=== PATIENT | female | born 1955 | race Caucasian/White ===

== ENCOUNTER → 2017-01-06 | Outpatient (CLI) | payer BC ==
--- NOTE | 2017-01-06 19:39 | KCIC ---
Bilateral digital screening mammograms: Reason for examination: Routine screening. Comparison is made to previous studies dated 12/30/2015 and 12/06/2014. The skin and nipples show no abnormalities. No abnormal axillary lymph nodes are seen. The breast parenchyma is heterogeneously dense. (Breast density: Category C.) There are no dominant masses, suspicious calcifications or architectural distortion. Impression: No evidence of malignancy. Recommend routine screening. Your patient's mammogram demonstrates that she has dense breast tissue (breast density category C or D), which could hide abnormalities, and if she has other risk factors for breast cancer that have been identified, she might benefit from supplemental screening tests that may be suggested by you as her ordering physician. Dense breast tissue, in and of itself, is a relatively common condition. Therefore, this information is not provided to cause undue concern, but rather to raise your awareness and to promote discussion with your patient regarding the presence of other risk factors, in addition to dense breast tissue. Your patient's mammography results will be sent to her. BI-RAD Category 1: Negative. "Our facility is accredited by the [employer] Mammography Program." This patient's information has been entered into a reminder system for the patient to be notified with the results of her examination and a target date for the next mammogram. Electronically signed by: Ronit Rosario MD (01/06/2017 7:35 PM) [id number]
== END ==
LOC: KCIC MAMMO 15:19
PROVIDERS: ATTEND Internal Medicine
DX: Z12.31 Encounter for screening mammogram for malignant neoplasm of breast (principal)
CPT/HCPCS: G0202; 77067

== ENCOUNTER → 2017-02-24 | Outpatient (CLI) | payer BC ==
[~2017-02-24] MED LIST: ATOR10TA60 PO; GADOBUTROL 7.5 MMOL/7.5 ML VIAL IV ONE; LEVO25TA55 PO
--- NOTE | 2017-02-24 13:51 | KCIC ---
MRI Brain with and without contrast History: Sudden right sensorineural hearing loss starting 2 months ago Technique: Multiplanar, multi sequential pre and postcontrast MR imaging was performed of the brain to include dedicated images of the internal auditory canals. Contrast: 5 cc Gadavist Comparison: None Findings: There is no evidence of recent infarct or cytotoxic edema. The ventricles, sulci, and cisterns are within normal limits in size and configuration. There is no significant midline shift, intraaxial mass effect, or focal abnormal extra-axial fluid collection. There are multiple scattered small foci of T2 and FLAIR hyperintense signal abnormality of the supratentorial white matter most numerous of the frontal lobes, largest focus of the right frontal deep white matter. Foci are not associated with enhancement. There is no nodular parenchymal or leptomeningeal enhancement. There is a small right cerebellar developmental venous anomaly. There is also small right frontal developmental venous anomaly. There is preservation of the major intracranial flow-voids at the skull base. The cerebellar tonsils are normal in location. There is no significant abnormality of the pineal gland or pituitary gland. There is what may represent a complex mucous retention cyst of the inferior left maxillary sinus up to 1.3 cm. There has been lens surgery bilaterally. There is moderate fluid and thickening of the right mastoid air cells, left mastoid air cells aerated. There is preserved marrow signal of the clivus. Impression: 1. There is no enhancing mass of the internal auditory canals or cerebellopontine angles. 2. There is moderate fluid and thickening of the right mastoid air cells. 3. There are multiple scattered small foci of nonenhancing T2 and FLAIR hyperintense signal abnormality of supratentorial white matter greatest of the frontal lobes. Findings could be due to chronic microvascular ischemic disease. White matter changes can be seen with patients with migraine headaches if corresponding history. Pattern is not particularly suggestive of an inflammatory demyelinating disease. Electronically signed by: Eder Harris MD (02/24/2017 1:48 PM) [id number]
== END | disposition home or self-care (01) ==
LOC: KCIC MRI 12:14
PROVIDERS: ATTEND Otolaryngology Otology & Neurotology
DX: H91.91 Unspecified hearing loss, right ear (principal)
CPT/HCPCS: 70553; A9585

== ENCOUNTER → 2018-01-12 | Outpatient (CLI) | payer BC | END | disposition home or self-care (01) | LOC: KCIC MAMMO 12:52 | DX: Z12.31 Encounter for screening mammogram for malignant neoplasm of breast (principal) | CPT/HCPCS: 77067 ==

== ENCOUNTER → 2018-01-25 | Outpatient (CLI) | payer BC ==
[~2018-01-25] MED LIST changes: -GADOBUTROL 7.5 MMOL/7.5 ML VIAL IV ONE
--- NOTE | 2018-01-25 15:13 | KCIC ---
Left breast diagnostic digital mammograms: Reason for examination: Nodular asymmetries on screening mammogram. Comparison is made to previous study dated 01/12/2018. There continues to be some nodularity at the 12:00 B and approximately the 3:00 B positions of the left breast. These are fairly well-circumscribed and may represent cysts. Further evaluation with ultrasound will follow. IMPRESSION: Small nodular densities persist at approximately the 12:00 B and 3:00 B positions. Ultrasound to follow. BI-RADS Category 0: Incomplete. Needs additional imaging evaluation. Left breast ultrasound: Left breast ultrasound was performed in the areas of mammographic concern and the left axilla. In the 12:00 position 4 cm from the nipple, there is a small focus of some minimal fibrocystic change measuring 3 mm in greatest dimension position within some dense fibroglandular tissue. In the 3:00 position 4 cm from the nipple, there is a 5.2 mm hypoechoic circumscribed lesion consistent with a probable fibroadenoma. No other cystic or solid lesions are seen. There is some ductal ectasia. No abnormal appearing lymph nodes are seen in the axilla. IMPRESSION: Minimal fibrocystic changes at the 12:00 position. Small nodule probably representing a fibroadenoma at the 3:00 position measuring 5.2 mm in size. Recommend 6 month sonographic follow-up. BI-RADS Category 3: Probably Benign. "Our facility is accredited by the [employer] Mammography Program." This patient's information has been entered into a reminder system for the patient to be notified with the results of her examination and a target date for the next mammogram. Electronically signed by: Ronit Rosaroi MD (01/25/2018 3:09 PM) [id number]
== END | disposition home or self-care (01) ==
LOC: KCIC MAMMO 12:42
PROVIDERS: ATTEND Internal Medicine
DX: R92.8 Other abnormal and inconclusive findings on diagnostic imaging of breast (principal)
CPT/HCPCS: 76641; 77065

== ENCOUNTER → 2018-04-06 | Outpatient (CLI) | payer BC ==
--- NOTE | 2018-04-06 14:05 | KCIC ---
EXAM: Lumbar spine MRI without contrast. HISTORY: Sciatica. TECHNIQUE: Multiplanar, multisequence magnetic resonance imaging of the lumbar spine was performed without contrast. COMPARISON: None. FINDINGS: There is grade 1 anterolisthesis of L4 on L5, measuring 3 mm. There is degenerative endplate remodeling with disc space narrowing, osteophytosis and Schmorl's node formation at L5-S1. There are few small incidental osseous hemangiomas. No suspicious osseous lesion is seen. The conus terminates at L1. At L1-L2, there is no stenosis. At L2-L3, there is a disc bulge and endplate remodeling. There is mild bilateral facet arthropathy. There is no stenosis. At L3-L4, there is a disc bulge and endplate remodeling. There is mild bilateral facet arthropathy. There is no stenosis. At L4-L5, there is a right foraminal to extra foraminal disc protrusion superimposed on a disc bulge and endplate remodeling. There is mild right and moderate left facet arthropathy. There is mild right foraminal stenosis with abutment of the exiting right greater than left L4 nerve roots. At L5-S1, there are bilateral foraminal to extraforaminal disc osteophyte complexes superimposed on a disc bulge and endplate osteophytosis. There is mild bilateral facet arthropathy. There is mild to moderate right and moderate left foraminal stenosis with abutment of the exiting L5 nerve roots. IMPRESSION: 1. Multilevel degenerative change within the lumbar spine, described in detail above. This results in stenosis at the aforementioned levels. 2. Mild grade 1 anterolisthesis of L4 on L5. 3. No acute finding. Electronically signed by: Breanna Brandt MD (04/06/2018 2:02 PM) [place] [id number]
== END | disposition home or self-care (01) ==
LOC: KCIC MRI 12:49
PROVIDERS: ATTEND Chiropractor
DX: M47.896 Other spondylosis, lumbar region (principal); M85.88 Other specified disorders of bone density and structure, other site; M48.061 Spinal stenosis, lumbar region without neurogenic claudication
CPT/HCPCS: 72148

== ENCOUNTER → 2018-07-29 | Outpatient (CLI) | payer BC ==
--- NOTE | 2018-07-29 13:28 | KCIC ---
Bone mineral density exam History: Postmenopausal, osteoporosis, takes thyroid medication and calcium supplement, hysterectomy Comparison: 05/26/2008 Findings: Bone mineral density examination utilizing DEXA was performed. Left hip bone mineral density of 0.807 g/cm2 corresponds with a T score -1.1, Z score 0.1. Compared with the previous exam, there has been 1.2% increase. The bone mineral density of the lumbar spine was 0.798 g/cm2 which corresponds with a T-score of -2.3, Z score -0.5. Compared with the previous exam, there has been 8.1% increase. By World Congress on Osteoporosis criteria, a T score of 0 to-1 SD is considered to be within normal limits. A T score of -1 to -2.5 SD is considered osteopenia. A T score less than -2.5 SD is considered osteoporosis Impression: 1. There is osteopenia of the left hip and the lumbar spine. Electronically signed by: Eder Harris MD (07/29/2018 1:24 PM) [email or web address]
--- NOTE | 2018-07-29 17:51 | KCIC ---
Left breast ultrasound: Reason for examination: Follow-up nodules. Comparison is made to previous study dated 01/25/2018. Ultrasound examination of the left breast was performed with attention to the areas of previous mammographic and sonographic concern and the left axilla. In the 3:00 position 4 cm from the nipple, there continues to be a hypoechoic circumscribed lesion measuring 5.3 mm in greatest dimension which lies in parallel orientation and likely represents a small fibroadenoma and appears to be stable. In the 12:00 position 4 cm from the nipple, there continues to be a small fibrocystic type lesion measuring 3 mm in greatest dimension which shows no significant change. No abnormal appearing lymph nodes are seen in the axilla. IMPRESSION: No change in the small lesions at the 3:00 and 12:00 positions. Recommend reevaluation in 6 months to be performed at the time of bilateral mammograms to verify stability of these lesions. BI-RADS Category 3: Probably Benign. "Our facility is accredited by the [employer] Mammography Program." This patient's information has been entered into a reminder system for the patient to be notified with the results of her examination and a target date for the next mammogram. Electronically signed by: Ronit Rosario MD (07/29/2018 5:46 PM) [id number]
== END | disposition home or self-care (01) ==
LOC: KCIC DEXA 12:15
PROVIDERS: ATTEND Family Medicine
DX: M85.88 Other specified disorders of bone density and structure, other site (principal); N60.02 Solitary cyst of left breast; D24.2 Benign neoplasm of left breast; Z90.710 Acquired absence of both cervix and uterus
CPT/HCPCS: 76641; 77080

== ENCOUNTER → 2019-02-14 | Outpatient (CLI) | payer BC ==
--- NOTE | 2019-02-14 10:10 | KCIC ---
Bilateral digital diagnostic mammogram and left breast ultrasound Reason for examination: Follow-up of probably benign left breast lesions, routine right breast screening Comparison is made to previous study dated left breast ultrasound July 29, 2018 and January 25, 2018. Mammogram January 25, 2018 and priors. Routine CC and MLO digital views obtained. Interpretation was made with the benefit of CAD. Mammogram: The skin and nipples show no abnormalities. No abnormal axillary lymph nodes are seen. The breast parenchyma is heterogeneously dense. (Breast density: Category C.) There are no suspicious masses, suspicious calcifications or architectural distortion. Nodularity of the glandular tissue is stable. On the left CC view are mild asymmetries which with supplemental imaging are confirmed as summation density of overlapping glandular tissue with no underlying lesion with a similar morphology to prior studies. ULTRASOUND: Left breast 3:00 position 4 cm from the nipple demonstrates a parallel hypoechoic circumscribed nonshadowing complicated cyst or nodule typical of a fibroadenoma measuring 5 x 2 mm, stable. Separately at the left breast 12:00 position 4 cm from the nipple there is a 2 x 2 mm hypoechoic nonshadowing focus which is slightly smaller previously measured 3 x 2 mm likely a mild collapsing cyst. Imaging features are probably benign. No new or suspicious lesion. No axillary adenopathy. Impression: Negative bilateral mammogram. Stable probably benign left breast lesions as described above. Attention on follow-up left breast ultrasound in one year is advised to confirm 2 years of stability. Continue annual screening mammography. ?Your patient's mammogram demonstrates that she has dense breast tissue (breast density category C or D), which could hide abnormalities, and if she has other risk factors for breast cancer that have been identified, she might benefit from supplemental screening tests that may be suggested by you as her ordering physician. Dense breast tissue, in and of itself, is a relatively common condition. Therefore, this information is not provided to cause undue concern, but rather to raise your awareness and to promote discussion with your patient regarding the presence of other risk factors, in addition to dense breast tissue. Your patient's mammography results will be sent to her. BI-RAD Category 3: Probably benign. "Our facility is accredited by the [employer] Mammography Program." This patient's information has been entered into a reminder system for the patient to be notified with the results of her examination and a target date for the next mammogram. Electronically signed by: Jacinto Raines MD (02/14/2019 10:07 AM) [id number]
== END | disposition home or self-care (01) ==
LOC: KCIC MAMMO 08:38
PROVIDERS: ATTEND Family Medicine
DX: D24.2 Benign neoplasm of left breast (principal); D24.1 Benign neoplasm of right breast
CPT/HCPCS: 76641; 77066

== ENCOUNTER → 2020-02-16 | Outpatient (CLI) | payer OTHER ==
--- NOTE | 2020-02-16 16:39 | KCIC ---
EXAM: Abdomen, single view. HISTORY: Constipation. Epigastric pain. COMPARISON: None. FINDINGS: A frontal view of the abdomen is obtained. There is moderate colonic stool. There are nondistended air-filled loops of bowel throughout the abdomen. There is no transition point to suggest obstruction. There are surgical clips overlying the pelvis. There is degenerative change at the lumbosacral junction. IMPRESSION: Nonobstructive bowel gas pattern. Electronically signed by: Breanna Brandt MD (02/16/2020 4:36 PM) [facility]
== END ==
LOC: KCIC 15:20
PROVIDERS: ATTEND Family Medicine
DX: R10.13 Epigastric pain (principal)
CPT/HCPCS: 74018

== ENCOUNTER → 2020-06-12 | Outpatient (CLI) | payer OTHER ==
--- NOTE | 2020-06-12 13:39 | RAD ---
DATE: 06/12/2020 1:09 PM EXAM: MAMMO MAREK DIAG BILAT HISTORY: Screening COMPARISON: 02/14/2019 Bilateral CC and MLO views of the breasts were performed. Bilateral breast tomosynthesis was performed in CC and MLO projections. This study was interpreted with the benefit of Computerized Aided Detection (CAD). FINDINGS: Breast Density: HETERO The breast parenchyma Is heterogeneously dense, which could reduce sensitivity of mammography. Breast parenchyma level C No suspicious masses, microcalcifications or architectural distortion is present to suggest malignancy in either breast. The visualized axillae are unremarkable. IMPRESSION: No mammographic evidence of malignancy. BI-RADS CATEGORY: 1 NEGATIVE RECOMMENDED FOLLOW-UP: 12M 12 MONTH FOLLOW-UP Annual screening mammography is recommended, unless clinically indicated sooner based on symptoms or change in physical exam. PQRS compliance statement: Patient information was entered into a reminder system with a target due date for the next mammogram. Mammography is a sensitive method for finding small breast cancers, but it does not detect them all and is not a substitute for careful clinical examination. A negative mammogram does not negate a clinically suspicious finding and should not result in delay in biopsying a clinically suspicious abnormality. "Our facility is accredited by the [employer] Mammography Program."
--- NOTE | 2020-06-13 09:35 | RAD ---
Addendum: HISTORY: Patient is due for screening but she is a diagnostic patient because she presents for short-term follow-up of a probably benign nodule in the left breast recommended for short-term follow-up most recently in January 2019. COMPARISON: Mammograms of 02/14/2019 and 01/12/2018 as well as left diagnostic mammogram of 01/25/2018. Limited left breast ultrasound of 01/25/2018, 07/29/2018 at 02/14/2019 also reviewed. TECHNIQUE: In addition to the standard mammographic views with 2-D and 3-D technique acquired, targeted ultrasound of the left breast was performed focusing on the 3:00 position 4 cm from the nipple, the 12:00 position 4 cm from the nipple and the left axilla. ADDITIONAL FINDINGS: No sonographic abnormality identified at the 12:00 position 4 cm from the nipple. No change in mass 5 mm parallel orientation circumscribed isoechoic nodule at the left 3:00 position 4 cm from the nipple, compatible with a benign fibroadenoma. IMPRESSION: Negative bilateral mammogram and benign findings on targeted left breast ultrasound. No evidence of malignancy. BI-RADS Category 2 Benign Recommend routine annual mammographic screening next due in one year. Addended on 06/13/2020 9:31:31 AM by Ian Jones. DATE: 06/12/2020 1:09 PM EXAM: MAMMO MAREK DIAG BILAT HISTORY: Screening COMPARISON: 02/14/2019 Bilateral CC and MLO views of the breasts were performed. Bilateral breast tomosynthesis was performed in CC and MLO projections. This study was interpreted with the benefit of Computerized Aided Detection (CAD). FINDINGS: Breast Density: HETERO The breast parenchyma Is heterogeneously dense, which could reduce sensitivity of mammography. Breast parenchyma level C No suspicious masses, microcalcifications or architectural distortion is present to suggest malignancy in either breast. The visualized axillae are unremarkable. IMPRESSION: No mammographic evidence of malignancy. BI-RADS CATEGORY: 1 NEGATIVE RECOMMENDED FOLLOW-UP: 12M 12 MONTH FOLLOW-UP Annual screening mammography is recommended, unless clinically indicated sooner based on symptoms or change in physical exam. PQRS compliance statement: Patient information was entered into a reminder system with a target due date for the next mammogram. Mammography is a sensitive method for finding small breast cancers, but it does not detect them all and is not a substitute for careful clinical examination. A negative mammogram does not negate a clinically suspicious finding and should not result in delay in biopsying a clinically suspicious abnormality. "Our facility is accredited by the [employer] Mammography Program."
== END ==
LOC: MAMMO 13:05
PROVIDERS: ATTEND Family Medicine
DX: D24.9 Benign neoplasm of unspecified breast (principal)
CPT/HCPCS: 76641; 77066; G0279; 77062

== ENCOUNTER → 2021-06-23 | Outpatient (CLI) | payer OTHER, MEDICARE ==
--- NOTE | 2021-06-23 11:47 | RAD ---
DATE: 06/23/2021 9:55 AM EXAM: MG DIGITAL BILAT DIAGNOSTIC MAMMO WITH MAREK HISTORY: 66-year-old female with burning sensation and discomfort in the left breast. No personal hi story of breast cancer. History of breast cancer in paternal grandmother age 70. COMPARISON: Bilateral screening mammograms dating back to 01/25/2018 Left breast ultrasound from 06/12/2020 Bilateral CC and MLO views of the breasts were performed. Bilateral breast tomosynthesis was performe d in CC and MLO projections. This study was interpreted with the benefit of Computerized Aided Detection (CAD). FINDINGS: Breast Density: HETERO The breast parenchyma Is heterogeneously dense, which could reduce sensitivit y of mammography. Breast parenchyma level C. Stable nodular appearance of the breast parenchyma. Part ially obscured mass at the 1:00 position, anterior depth in the right breast which completely dissipa deion on subsequent 2-D spot compression, consistent with parenchymal summation. Asymmetry in the media l left breast, anterior depth demonstrates complete dissipation on subsequent to the spot compression , consistent with parenchymal summation. Skin marker in the left upper outer breast, posterior depth with no underlying appreciable mammographic abnormality. No suspicious masses, microcalcifications or architectural distortion is present to suggest malignanc y in either breast. The visualized axillae are unremarkable. Left breast ultrasound: Targeted left breast ultrasound at the 2:00 position, 7 cm deep to the nipple reveals a dense band of fibroglandular tissue with a small area of previously ultrasounded stable fi brocystic type change. Ultrasound at the 3:00 position, 11 cm to the nipple demonstrates a rib with n o additional associated suspicious abnormalities. There are no abnormal left axillary lymph nodes. IMPRESSION: No mammographic evidence of malignancy. BI-RADS CATEGORY: 2 BENIGN FINDING(S) RECOMMENDED FOLLOW-UP: Annual screening mammography is recommended, unless clinically indicated soone r based on symptoms or change in physical exam. PQRS compliance statement: Patient information was entered into a reminder system with a target due d ate 06/23/2022 for the next mammogram. Mammography is a sensitive method for finding small breast cancers, but it does not detect them all a nd is not a substitute for careful clinical examination. A negative mammogram does not negate a clin ically suspicious finding and should not result in delay in biopsying a clinically suspicious abnorma lity. "Our facility is accredited by the [employer] Mammography Program." Electronically signed by: Quinn Salas DO (06/23/2021 11:45 AM) [email or web address]
== END ==
LOC: MAMMO 09:50
PROVIDERS: ATTEND Family Medicine
DX: R92.2 Inconclusive mammogram (principal)
CPT/HCPCS: 76641; 77066; G0279; 77062